=== PATIENT | female | born 1955 | race Caucasian/White ===

== ENCOUNTER → 2023-11-24 08:06 | Outpatient (REF) | payer MEDICARE, OTHER, SELFPAY ==
[2023-11-24 12:06] LABS: % Basophils 0.9 % (0-2); % Eosinophils 3.6 % (0-6); % Immature Granulocytes 0.4 % (0-0.5); % Lymphocytes 28.4 % (20.5-51.1); % Monocytes 9.4 % (1.7-9.3); % Neutrophils 57.3 % (42.2-75.2); Absolute Basophils 0.1 10^3/uL (0-0.2); Absolute Eosinophils 0.3 10^3/uL (0-0.7); Absolute Monocytes 0.7 10^3/uL (0.1-0.6); Hematocrit 42.3 % (37.0-47.0); Hemoglobin 14.8 g/dL (12.0-16.0); Mean Corpuscular Hgb 30.6 pg (27.0-31.0); Mean Corpuscular Volume 87.6 fL (81.0-99.0); Mean Platelet Volume 9.2 fL (7.4-10.4); Nucleated Red Blood Cells % 0 %; Platelet Count 311 10^3/uL (130-400); Red Blood Cell Count 4.83 10^6/uL (4.20-5.40); Red Cell Dist. Width 11.9 % (11.5-14.5); White Blood Cell Count 6.9 10^3/uL (4.8-10.8)
[2023-11-24 12:21] LABS: Urine Albumin Negative (Neg - Trace); Urine Bilirubin Negative (Negative); Urine Character Clear (Clear); Urine Color Yellow; Urine Glucose Negative (Negative); Urine Ketone Negative (Negative); Urine Leukocyte Negative (Negative); Urine Nitrite Negative (Negative); Urine Occult Blood Negative (Negative); Urine Specific Gravity 1.005 (<1.030); Urine Urobilinogen Negative (Neg - 1+)
[2023-11-24 12:23] LABS: ALT (SGPT) 28 U/L (0-35); AST (SGOT) 29 U/L (14-36); Albumin 4.4 g/dl (3.5-5.0); Alkaline Phosphatase 90 U/L (38-126); Blood Urea Nitrogen 14 mg/dl (7-17); Carbon Dioxide 27 mmol/L (22-30); Chloride 100 mmol/L (98-107); Glucose 140 mg/dl (70-99); HDL Cholesterol 67 mg/dl; LDL Cholesterol, Calculated 112 mg/dl; Potassium 4.3 mmol/L (3.5-5.1); Sodium 135 mmol/L (135-145); Total Bilirubin 0.8 mg/dl (0.2-1.3); Total Cholesterol 212 mg/dl (50-199); Total Protein 7.1 g/dl (6.3-8.2); Triglyceride 167 mg/dl (10-149); Very Low Density Lipoprotein 33 mg/dl (0-30); eGFR > 60.00
[2023-11-24 12:37] LABS: Erythrocyte Sed Rate 20 mm/hour (0-20)
[2023-11-24 13:34] LABS: Vitamin D, 25-OH*** 24.5 ng/mL (30-80)
[2023-11-24 13:42] LABS: Folate 18.1 ng/ml (2.76-20)
[2023-11-24 14:10] LABS: Glycohemoglobin (HgbA1c) 6.4 % (4.0-5.6)
[2023-11-24 14:39] LABS: Vitamin B12 423 pg/ml (239-931)
== END ==
LOC: HWLAB 08:06
PROVIDERS: ATTENDING PHYSICIAN Internal Medicine Geriatric Medicine
DX: R00.0 Tachycardia, unspecified (principal); I10 Essential (primary) hypertension; E78.2 Mixed hyperlipidemia; R73.03 Prediabetes; E66.01 Morbid (severe) obesity due to excess calories; G47.33 Obstructive sleep apnea (adult) (pediatric); M76.32 Iliotibial band syndrome, left leg; M35.3 Polymyalgia rheumatica; M54.16 Radiculopathy, lumbar region; Z13.89 Encounter for screening for other disorder; E55.9 Vitamin D deficiency, unspecified; R06.09 Other forms of dyspnea
CPT/HCPCS: 36415; 80053; 80061; 81003; 82306; 82533; 82607; 82746; 83036; 85025; 85652; 86140

== ENCOUNTER → 2024-02-08 14:16 | Outpatient (REF) | payer MEDICARE, OTHER, SELFPAY | LOC: HWRAD 14:16 | PROVIDERS: ATTENDING PHYSICIAN Internal Medicine Geriatric Medicine | DX: R73.03 Prediabetes (principal); I10 Essential (primary) hypertension; M35.3 Polymyalgia rheumatica; K66.0 Peritoneal adhesions (postprocedural) (postinfection) | CPT/HCPCS: 76536 ==

== ENCOUNTER → 2024-02-09 10:40 | Outpatient (REF) | payer MEDICARE, OTHER, SELFPAY ==
[2024-02-09 13:05] LABS: Free T4 1.08 ng/dl (0.78-2.19); Vitamin D, 25-OH*** 38.3 ng/mL (30-80)
[2024-02-09 13:18] LABS: TSH 1.96 uIU/ml (0.47-4.68)
== END ==
LOC: HWLAB 10:40
PROVIDERS: ATTENDING PHYSICIAN Internal Medicine Geriatric Medicine
DX: R00.0 Tachycardia, unspecified (principal); I10 Essential (primary) hypertension; E78.2 Mixed hyperlipidemia; R73.03 Prediabetes; E66.01 Morbid (severe) obesity due to excess calories; G47.33 Obstructive sleep apnea (adult) (pediatric); M76.32 Iliotibial band syndrome, left leg; M35.3 Polymyalgia rheumatica; M54.16 Radiculopathy, lumbar region; E55.9 Vitamin D deficiency, unspecified; Z13.89 Encounter for screening for other disorder; R10.30 Lower abdominal pain, unspecified; K66.0 Peritoneal adhesions (postprocedural) (postinfection)
CPT/HCPCS: 36415; 82306; 84439; 84443

== ENCOUNTER → 2024-02-29 14:00 | Outpatient (REF) | payer MEDICARE, OTHER, SELFPAY | LOC: HWWDC 14:00 | PROVIDERS: ATTENDING PHYSICIAN Internal Medicine Geriatric Medicine | DX: Z13.89 Encounter for screening for other disorder (principal); Z12.31 Encounter for screening mammogram for malignant neoplasm of breast; Z78.0 Asymptomatic menopausal state | CPT/HCPCS: 77063; 77067; 77080 ==

== ENCOUNTER → 2024-07-04 07:08 | Outpatient (REF) | payer MEDICARE, OTHER, SELFPAY ==
[2024-07-04 11:00] LABS: Glycohemoglobin (HgbA1c) 6.4 % (4.0-5.6)
== END ==
LOC: HWLAB 07:08
PROVIDERS: ATTENDING PHYSICIAN Internal Medicine Endocrinology, Diabetes & Metabolism; FAMILY PHYSICIAN Internal Medicine Geriatric Medicine
DX: E04.2 Nontoxic multinodular goiter (principal); R73.03 Prediabetes
CPT/HCPCS: 36415; 82533; 83036

== ENCOUNTER → 2024-07-08 09:09 | Outpatient (REF) | payer MEDICARE, OTHER, SELFPAY ==
[2024-07-08 12:15] LABS: 24 Hour Urine Total Volume 2950 ml
[2024-07-08 12:39] LABS: 24 Hour Urine Creatinine 1.079 gm/day (0.8-1.8)
== END ==
LOC: HWLAB 09:09
PROVIDERS: ATTENDING PHYSICIAN Internal Medicine Endocrinology, Diabetes & Metabolism; FAMILY PHYSICIAN Internal Medicine Geriatric Medicine
DX: E04.2 Nontoxic multinodular goiter (principal); R73.03 Prediabetes
CPT/HCPCS: 81050; 82530; 82570

== ENCOUNTER → 2024-09-01 08:28 | Outpatient (REF) | payer MEDICARE, OTHER, SELFPAY ==
[2024-09-01 12:45] LABS: % Basophils 0.7 % (0-2); % Eosinophils 1.6 % (0-6); % Immature Granulocytes 0.4 % (0-0.5); % Lymphocytes 27.9 % (20.5-51.1); % Monocytes 9.9 % (1.7-9.3); % Neutrophils 59.5 % (42.2-75.2); Absolute Basophils 0.1 10^3/uL (0-0.2); Absolute Eosinophils 0.1 10^3/uL (0-0.7); Absolute Lymphocytes 2.3 10^3/uL (1.2-3.4); Absolute Monocytes 0.8 10^3/uL (0.1-0.6); Absolute Neutrophils 4.8 10^3/uL (1.4-6.5); Hemoglobin 15.2 g/dL (12.0-16.0); Mean Corp Hgb Conc. 34.5 g/dL (33.0-37.0); Mean Corpuscular Hgb 30.7 pg (27.0-31.0); Mean Corpuscular Volume 88.9 fL (81.0-99.0); Mean Platelet Volume 9.8 fL (7.4-10.4); Nucleated Red Blood Cells % 0 %; Platelet Count 289 10^3/uL (130-400); Red Blood Cell Count 4.95 10^6/uL (4.20-5.40); Red Cell Dist. Width 12.1 % (11.5-14.5); White Blood Cell Count 8.1 10^3/uL (4.8-10.8)
[2024-09-01 13:21] LABS: Glycohemoglobin (HgbA1c) 6.3 % (4.0-5.6); Urine Albumin Negative (Neg - Trace); Urine Bilirubin Negative (Negative); Urine Character Clear (Clear); Urine Color Yellow; Urine Glucose Negative (Negative); Urine Ketone Negative (Negative); Urine Leukocyte Negative (Negative); Urine Nitrite Negative (Negative); Urine Occult Blood Negative (Negative); Urine Specific Gravity 1.005 (<1.030); Urine Urobilinogen Negative (Neg - 1+)
[2024-09-01 14:47] LABS: ALT (SGPT) 23 U/L (0-35); AST (SGOT) 26 U/L (14-36); Albumin 4.7 g/dl (3.5-5.0); Alkaline Phosphatase 96 U/L (38-126); Blood Urea Nitrogen 11 mg/dl (7-17); Calcium 9.8 mg/dl (8.4-10.2); Carbon Dioxide 26 mmol/L (22-30); Chloride 103 mmol/L (98-107); Glucose 138 mg/dl (70-99); HDL Cholesterol 75 mg/dl; Iron 146 ug/dl (37-170); LDL Cholesterol, Calculated 129 mg/dl; Potassium 4.6 mmol/L (3.5-5.1); Sodium 137 mmol/L (135-145); Total Bilirubin 0.9 mg/dl (0.2-1.3); Total Cholesterol 240 mg/dl (50-199); Total Protein 7.7 g/dl (6.3-8.2); Triglyceride 180 mg/dl (10-149); Very Low Density Lipoprotein 36 mg/dl (0-30); eGFR > 60.00
[2024-09-01 14:57] LABS: Free T4 1.25 ng/dl (0.78-2.19); Vitamin D, 25-OH*** 45.2 ng/mL (30-80)
[2024-09-01 15:10] LABS: TSH 1.69 uIU/ml (0.47-4.68)
[2024-09-01 15:28] LABS: Percent Saturation 37 % (20-50); Total Iron Binding Capacity 387 ug/dl (265-497)
[2024-09-01 15:46] LABS: Folate > 20.0 ng/ml (2.76-20); Vitamin B12 396 pg/ml (239-931)
[2024-09-02 22:49] LABS: C-Peptide 4.4 ng/mL (0.5-3.3)
[2024-09-03 01:32] LABS: DHEA Sulfate 99 ug/dL (9-246)
[2024-09-03 04:14] LABS: Vitamin D 1,25 Dihydroxy 44.5 pg/mL (19.9-79.3)
[2024-09-03 05:24] LABS: Zinc 84.2 ug/dL (60.0-120.0)
[2024-09-03 06:26] LABS: ANA, IgG Reflex to HEp-2 None Detected (None Detected)
== END ==
LOC: HWLAB 08:28
PROVIDERS: ATTENDING PHYSICIAN Physician Assistant Medical; FAMILY PHYSICIAN Internal Medicine Geriatric Medicine
DX: L65.0 Telogen effluvium (principal); E66.01 Morbid (severe) obesity due to excess calories; I10 Essential (primary) hypertension; E78.2 Mixed hyperlipidemia; R00.0 Tachycardia, unspecified; R73.03 Prediabetes; G47.33 Obstructive sleep apnea (adult) (pediatric); M76.32 Iliotibial band syndrome, left leg; M35.3 Polymyalgia rheumatica; M54.16 Radiculopathy, lumbar region; E55.9 Vitamin D deficiency, unspecified; Z13.89 Encounter for screening for other disorder; R10.30 Lower abdominal pain, unspecified; Z87.42 Personal history of other diseases of the female genital tract; R06.09 Other forms of dyspnea
CPT/HCPCS: 36415; 80053; 80061; 81003; 82157; 82306; 82607; 82627; 82652; 82728; 82746; 83036; 83540; 83550; 84270; 84402; 84403; 84439; 84443; 84630; 84681; 85025; 86038